=== PATIENT | male | born 1970 | race African-American/Black ===

== ENCOUNTER 2017-06-29 00:40 | Emergency (ER) | payer OTHER ==
[~2017-06-29] VITALS: Ht 180.3 cm; Wt 90.7 kg
[~2017-06-29 00:40] MED LIST: FLEXERIL PO; IBUPROFEN 200200 M1; MEDROLDOSEPACK PO; NORCO 5-325 TA1 EACH PO; PREDNISONE 20 M20 MG PO; VALIUM2 MG PO; ZANTAC 150MG T150 MG PO
[2017-06-29 00:41] VITALS: BP 139/91
[2017-06-29] MEDS ORDERED: PENICILLIN VK500 M1 PO (01:33)
[2017-06-29] MEDS ORDERED: PROTONIX40 MG PO (01:33)
[2017-06-29] MEDS ORDERED: NORCO 5-325 TA1 EACH PO (01:33)
== END 2017-06-29 01:59 | disposition home or self-care (01) ==
LOC: ER 00:40
DX: K02.9 Dental caries, unspecified (principal); K21.9 Gastro-esophageal reflux disease without esophagitis; F17.210 Nicotine dependence, cigarettes, uncomplicated; F10.99 Alcohol use, unspecified with unspecified alcohol-induced disorder; Z88.8 Allergy status to other drugs, medicaments and biological substances

== ENCOUNTER 2018-10-16 08:32 | Emergency (ER) | payer OTHER ==
[~2018-10-16] VITALS: Ht 180.3 cm; Wt 90.7 kg
[~2018-10-16 08:32] MED LIST changes: +PENICILLIN VK500 M1 PO; +PROTONIX40 MG PO
[2018-10-16] MEDS ORDERED: BACTRIM DS TAB1 EACH PO (09:15)
[2018-10-16] MEDS ORDERED: NORCO 5-325 TA1 EACH PO (09:15)
[2018-10-16 10:02] VITALS: BP 134/86
== END 2018-10-16 10:02 | disposition home or self-care (01) ==
LOC: ER 08:32
DX: L02.415 Cutaneous abscess of right lower limb (principal); G56.03 Carpal tunnel syndrome, bilateral upper limbs

== ENCOUNTER 2021-12-17 16:01 | Emergency (ER) | payer OTHER ==
[~2021-12-17] VITALS: Ht 180.3 cm; Wt 113.4 kg
[~2021-12-17 16:01] MED LIST changes: +BACTRIM DS TAB1 EACH PO
[2021-12-17 16:02] VITALS: BP 168/87
[2021-12-17] MEDS ORDERED: ERYTHROMYCIN E3.5 G3 OPHTHALMIC (16:58)
== END 2021-12-17 17:10 | disposition home or self-care (01) ==
LOC: ER
DX: H00.012 Hordeolum externum right lower eyelid (principal); F17.210 Nicotine dependence, cigarettes, uncomplicated; Z79.899 Other long term (current) drug therapy; Z88.8 Allergy status to other drugs, medicaments and biological substances